=== PATIENT | female | born 1990 | race Caucasian/White ===

== ENCOUNTER 2017-09-04 09:36 | Emergency (ER) | payer OTHER ==
[2017-09-04 10:02] VITALS: BP 130/92; PULSE 83; TEMP 97.9; BMI 27.3
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
== END 2017-09-04 14:03 | disposition home or self-care (01) ==
LOC: JERFT 09:36
DX: S92.355A Nondisplaced fracture of fifth metatarsal bone, left foot, initial encounter for closed fracture (principal); W10.1XXA Fall (on)(from) sidewalk curb, initial encounter; Y93.89 Activity, other specified; Y92.512 Supermarket, store or market as the place of occurrence of the external cause; Y99.8 Other external cause status
CPT/HCPCS: 73590-TC-LT-FY; 73610-TC-LT-FY; 73630-TC-LT; 84703; 99281-25